=== PATIENT | female | born 1930 | race Caucasian/White ===

== ENCOUNTER → 2019-05-29 | Outpatient (CLI) | payer MEDICARE, BC | END | disposition home or self-care (01) | LOC: LAB SHORT 14:57 → LAB 14:57 | DX: Z22.322 Carrier or suspected carrier of Methicillin resistant Staphylococcus aureus (principal) | CPT/HCPCS: 87081 ==

== ENCOUNTER 2019-06-18 08:59 | Day surgery (SDC) | payer MEDICARE, BC ==
[~2019-06-18] VITALS: Ht 160 cm; Wt 56.6 kg
[~2019-06-18 08:59] MED LIST: Lisinopril2.5 MG PO; THERA1 EACH PO
--- NOTE | 2019-06-18 09:41 | NUR ---
History, Chart, Medications and Allergies reviewed before start of procedure. Lungs clear T/O to Auscultation. Patient confirms NPO status and agrees with scheduled surgery. Pre-Op teaching done. Pt verbalizes understanding.
[2019-06-18] MEDS ORDERED: CALCIUM 600 +1 EA11 PO (10:18)
[2019-06-18] MEDS ORDERED: MAGNESIUM OXID500 MG PO (10:18)
[2019-06-18] MEDS ORDERED: IBUP200 PO (10:20)
[2019-06-18] MEDS ORDERED: PROBIOTIC1 EAC6 PO (10:20)
--- NOTE | 2019-06-18 13:24 | NUR ---
06/18/19 1324 Carri Espinoza ALL COUNTS CORRECT
--- NOTE | 2019-06-18 17:17 | NUR ---
shift summary: post op vs complete and stable. pt remained a/o x 4, pleasant/cooperative, slightly NOORVIK. spinal anesthesia with recovery of sensation and ability to stand. incontinent void x 2 post surgery r/t spinal anesthesia. pt denies n/v, rates pain at 2-3/10, denies need for analgesia at this time. pt up to chair following 100 ft ambulation in hallway.
--- NOTE | 2019-06-19 04:10 | NUR ---
SHIFT SUMMARY PT IS A/O X4. USES WALKER AND GAIT BELT. PT HAS AMBULATED TO BATHROOM SEVERAL TIMES AND AMBULATED IN HALLWAY. HAS HAD SCD'S AND POLAR PACK IN PLACE. NO C/O PAIN THIS SHIFT; ONLY MILD DISCOMFORT MANAGED WITH TYLENOL AND TORADOL PER SCHEDULE. PT IS TOLERATING PO INTAKE AND VOIDING. ASSISTED WITH ADL'S PRN.
[2019-06-19 05:30] LABS: Hematocrit 31.9 % (33.0-51.0); Hemoglobin 10.3 g/dL (11.5-16.0); Mean Corpuscular HGB 28.5 pg (26.0-34.0); Mean Corpuscular HGB Conc 32.3 g/dL (31.5-36.5); Mean Corpuscular Volume 88 fL (80-100); Mean Platelet Volume 9.9 fL (9.1-12.4); Platelet Count 211 K/mm3 (150-400); RDW Coefficient Variation 13.2 % (11.7-14.2); RDW Standard Deviation 42.5 fL (35.1-46.3); Red Blood Cell Count 3.62 M/mm3 (3.80-5.20); White Blood Cell Count 11.85 K/mm3 (4.00-11.30)
[2019-06-19 06:03] LABS: Anion Gap 5 mmol/L (6-16); Blood Urea Nitrogen 19 mg/dL (8-24); Bun/Creatinine Ratio 29.9 (12.0-20.0); CO2, Blood 26 mmol/L (21-32); Calcium, Blood 8.5 mg/dL (8.5-10.1); Chloride, Blood 106 mmol/L (98-108); Creatinine, Blood 0.64 mg/dL (0.40-1.00); Glomerular Filtration Rate >60 (60-); Glucose, Blood 95 mg/dL (70-99); Potassium, Blood 4.1 mmol/L (3.5-5.5); Sodium, Blood 137 mmol/L (136-145)
[2019-06-19 06:17] LABS: BAND PERCENT MAN 1 % (0-8); BASOPHILS PERCENT MAN 0 % (0-2); EOSINOPHILS PERCENT MAN 0 % (0-6); LYMPHOCYTES % ATYPICAL MANUAL 1 % (0-0); LYMPHOCYTES ABSOLUTE MAN 0.94 K/mm3 (0.84-5.20); LYMPHOCYTES PERCENT MAN 7 % (21-46); MONOCYTES ABSOLUTE MAN 2.01 K/mm3 (0.16-1.47); MONOCYTES PERCENT MAN 17 % (4-13); NEUTROPHILS ABSOLUTE MAN 8.88 K/mm3 (1.96-9.15); SEG NEUTROPHILS PERCENT MAN 74 % (41-73); TOTAL CELLS COUNTED 100
[2019-06-19] MEDS ORDERED: ASPI325EC PO (08:38)
[2019-06-19] MEDS ORDERED: HYDR1TAB94 PO (08:39)
[2019-06-19] MEDS ORDERED: PROM25 PO (08:39)
[2019-06-19] MEDS ORDERED: BACTRIM DS TAB1 EACH PO (08:40)
== END 2019-06-19 14:13 | disposition home or self-care (01) ==
LOC: ORSCMMR 08:59 → ORD 10:30 → SURS 14:17 → ORSCMMR 06-19 14:13 → SURS 06-19 14:13
PROVIDERS: Orthopaedic Surgery
PROC: 8E0YXBZ Computer Assisted Procedure of Lower Extremity (ICD-10-PCS; principal; 2019-06-18 10:30)
PROC: 0SRC0J9 Replacement of Right Knee Joint with Synthetic Substitute, Cemented, Open Approach (ICD-10-PCS; principal; 2019-06-18 10:30)
DX: M17.11 Unilateral primary osteoarthritis, right knee (principal); I10 Essential (primary) hypertension; Z79.899 Other long term (current) drug therapy; K21.9 Gastro-esophageal reflux disease without esophagitis
CPT/HCPCS: 36415; 73560-RT; 80048; 83735; 85025; 88300; 97110; 97116; 97162; 97530; A9270-GY; C1713; C1776; J0171; J0690; J0735; J1100; J1885; J2405; J2704; J2795; J3370; J7120